=== PATIENT | female | born 1985 | race Caucasian/White ===

== ENCOUNTER 2021-03-28 08:35 | Emergency (ER) | payer BC ==
[~2021-03-28] VITALS: Ht 157.5 cm; Wt 63.5 kg
[2021-03-28 08:42] VITALS: BP_SYST 131
--- NOTE | 2021-03-28 08:48 | NUR ---
AMBULATED TO BED 4
--- NOTE | 2021-03-28 08:51 | NUR ---
ER at bedside examining patient.
--- NOTE | 2021-03-28 08:52 | NUR ---
Pt. came in with rash over entire body, except face, rash raised welt like, states irritating and itchy but not painful, started about 2 weeks ago and did one course of steroids finished them and today rash is back
[2021-03-28] MEDS ORDERED: DIPHENHYDRAMINE HCL 50 MG CAPSULE PO ONE (09:00)
[2021-03-28] MEDS ORDERED: EPINEPHrine 1 MG/ML AMP IM ONE (09:00)
[2021-03-28] MEDS ORDERED: FAMOTIDINE 20 MG TABLET PO ONE (09:00)
[2021-03-28] MEDS ORDERED: EPIN0.3P3 IM (09:54)
--- NOTE | 2021-03-28 10:10 | NUR ---
Patient given written and verbal discharge instructions and verbalizes understanding. ER Dr. Aguilar discussed with patient the results and treatment provided. Patient in stable condition. ID arm band removed. Rx of Epipen pack given. Patient educated on pain management and to follow up with PMD. Pain Scale 0. Opportunity for questions provided and answered. Medication side effect fact sheet provided.
[2021-03-28 10:12] VITALS: BP_SYST 112
== END 2021-03-28 10:10 | disposition home or self-care (01) ==
LOC: SED 08:35
DX: L23.9 Allergic contact dermatitis, unspecified cause (principal)
CPT/HCPCS: 81025; 96372; 99283; J0171; Q0163